=== PATIENT | male | born 1985 | race Caucasian/White ===

== ENCOUNTER → 2016-10-20 | Outpatient (RCR) | payer BC | END | disposition home or self-care (01) | LOC: M OUTALCOH 09-22 16:00 | PROVIDERS: ATTEND Psychiatry & Neurology Psychiatry | DX: F10.20 Alcohol dependence, uncomplicated (principal); F17.228 Nicotine dependence, chewing tobacco, with other nicotine-induced disorders ==

== ENCOUNTER 2016-11-29 04:57 | Inpatient (IN) | payer BC ==
[~2016-11-29] VITALS: Ht 185.4 cm; Wt 78.2 kg
[2016-11-29] MEDS ORDERED: anxiety medication (05:06)
[2016-11-29 06:50] LABS: MEAN CORPUSCULAR HEMOGLOBIN 30.6 pg (27.0-33.0); MEAN CORPUSCULAR HGB CONC 34.6 g/dl (32.0-36.5); MEAN CORPUSCULAR VOLUME 88.6 fl (80.0-96.0); RED CELL DISTRIBUTION WIDTH 12.6 % (11.5-14.5); WHITE BLOOD COUNT 6.4 K/mm3 (4.0-10.0)
[2016-11-29 07:08] LABS: METHADONE URINE NEGATIVE (NEGATIVE)
[2016-11-29 07:16] LABS: ALBUMIN 4.2 GM/DL (3.2-5.2); ALBUMIN/GLOBULIN RATIO 1.24 (1.00-1.93); ALKALINE PHOSPHATASE 53 U/L (45-117); ALT/SGPT 32 U/L (12-78); ANION GAP 10 MEQ/L (8-16); AST/SGOT 23 U/L (15-37); BILIRUBIN,DIRECT < 0.1 MG/DL (0.0-0.2); BILIRUBIN,TOTAL 0.1 MG/DL (0.2-1.0); BLOOD UREA NITROGEN 16 MG/DL (7-18); CALCIUM LEVEL 8.8 MG/DL (8.5-10.1); CARBON DIOXIDE LEVEL 29 MEQ/L (21-32); CHLORIDE LEVEL 107 MEQ/L (98-107); CREATININE FOR GFR 1.16 MG/DL (0.70-1.30); GLOMERULAR FILTRATION RATE > 60.0 (>60); GLUCOSE, FASTING 89 MG/DL (70-105); SODIUM LEVEL 146 MEQ/L (136-145); TOTAL PROTEIN 7.6 GM/DL (6.4-8.2)
[2016-11-30] MEDS ORDERED: HYDR-4274 PO (12:24)
[2016-11-30 14:48] VITALS: BP 134/86
[2016-11-30 14:50] VITALS: BP 134/86
[2016-11-30] MEDS ORDERED: MOM 30ML SUSPENSION UDC PO PRN (16:30)
[2016-11-30] MEDS ORDERED: ACETAMINOPHEN TAB 650MG DOSE (2X325MG) PO PRN (16:30)
[2016-11-30] MEDS ORDERED: diphenhydrAMINE 25 MG CAP PO PRN (16:30)
[2016-11-30] MEDS ORDERED: LORazepam 2 MG TAB PO PRN (16:30)
[2016-11-30] MEDS ORDERED: THIAMINE 100 MG TAB PO ONE (16:45)
[2016-11-30] MEDS: traZODone 50 MG TAB PO PRN (21:18)
[2016-12-01 06:33] VITALS: BP 121/70
[2016-12-01 07:53] VITALS: BP 132/82
[2016-12-01] MEDS: MULTIVITAMINS/MINERALS THERAP 1 TAB PO SCH (08:50)
[2016-12-01] MEDS: THIAMINE 100 MG TAB PO SCH ×2 (08:50→21:39)
[2016-12-01] MEDS: FOLIC ACID 1 MG TAB PO SCH (08:50)
--- NOTE | 2016-12-01 10:40 | HPEPDOC ---
Medical History and Physical Date of Admission Nov 30, 2016 at 13:58 History and Physical PCP: None ATTENDING: Dr. Reilly Graf HPI: 31yoM admitted to [facility] for other specified depressive disorder, being medically examined today. No acute medical complaints today. Patient is denying any neck pain with movement, he states he does have some mild neck ache. No radiation of pain down his arms. No weakness, numbness, or tingling in upper extremities. He denies any headaches. There is a slight abrasion to the anterior neck area. Denies any fevers, chills, weakness, fatigue, SUBRAMANIAN, CP, SOB, cough, palpitations, abdominal pain, N/V/D or changes in bowel or bladder habits. PMHx: Anxiety Depression Alcohol use H/O SI/OD PSHX: Denies SOCHX: Resides in: [place], [place] Marital Status: Single Kids: 1 Employment: [employer] Tobacco use: Denies ETOH: Daily 6 or more drinks Illicit Drugs: Denies IV Drug Use: Denies Tattoos done unprofessionally: Denies FAMHX: Mother: Alive, history of CVA Father: Alive, diabetes, CAD Siblings: One sister Alive, well Children: Alive, well Unexpected deaths due to medical reasons: None. ROS: As noted in HPI, otherwise 11pt ROS of systems reviewed and unremarkable. PE: GEN: 31yoM, appears stated age. Well-nourished, well developed. No acute distress. Alert and oriented x 3. Pleasant, interactive. HEENT: Normocephalic, atraumatic. Pupils are equal, round, and reactive to light. Extraocular movements are intact. No nystagmus appreciated. Sclera are nonicteric. Conjunctiva without injection. Nose midline. Nasal turbinates without bogginess. EACs both patent BL. TMs both visualized and carrera with good cone of light, no bulging or erythema. No facial asymmetry. Moist mucous membranes. Dentition fair. Pharynx pink and moist, no cobblestoning. Neck supple , trachea midline. No lymphadenopathy or thyromegaly appreciated. CHEST: Regular rate and rhythm, +S1, +S2 LUNGS: Clear to auscultation bilaterally. No wheezes, rales, or rhonchi. Breathing appears symmetric and easy. Patient is speaking in full sentences. No accessory muscle use. ABD: Round, soft, non-tender, non-distended. +Bowel sounds throughout. No rebound or guarding. No costovertebral angle tenderness. EXT: Pulses 2+ bilaterally dorsalis pedis and radial. No lower extremity edema appreciated. SKIN: [place], dry, warm. Capillary refill <2sec. No rashes. There is superficial erythema noted anterior neck. NEURO: Alert and oriented x 3. Cranial nerves III-XII are intact. No focal deficits appreciated. There is no tenderness with palpation over the cervical spine or paraspinal muscles. EKG: pending. A&P: 31yoM admitted to [facility] for other specified depressive disorder 1. Psych. Plan per Psychiatry. Obtain baseline EKG to assure the safety of psychiatric medications as they can prolong the QT interval. 2. Hypernatremia. Oral intake has improved. Recheck BMP 3. Anterior neck abrasion/H/O Neck trauma. Appears to be healing. Appears to be superficial. Check CT Cervical spine. 4. Follow up. No Primary Care Provider. Will attempt to establish PCP on discharge. 5. Substance use. Withdrawal per psychiatry. Continue with MVI, Thiamine, and Folic Acid supplementation. Vital Signs Vital Signs Label Value Date Time Patient Temperature 95.7 degrees F 12/01/16 0633 Temperature Source Tympanic 12/01/16 0633 Pulse 63 12/01/16 0633 Respiratory Rate 18 bpm 12/01/16 0633 Blood Pressure Assessment 121/70 (87) 12/01/16 0633 Blood Pressure Assessment 132/82 12/01/16 0753 Laboratory Data Labs 24H Item Value Date Time White Blood Count 6.4 K/mm3 11/29/16 0508 Red Blood Count 5.69 M/mm3 11/29/16 0508 Hemoglobin 17.4 g/dl 11/29/16 0508 Hematocrit 50.4 % 11/29/16 0508 Mean Corpuscular Volume 88.6 fl 11/29/16 0508 Mean Corpuscular Hemoglobin 30.6 pg 11/29/16 0508 Mean Corpuscular Hemoglobin Concent 34.6 g/dl 11/29/16 0508 Red Cell Distribution Width 12.6 % 11/29/16 0508 Platelet Count 324 k/mm3 11/29/16 0508 Sodium Level 146 MEQ/L H 11/29/16 0508 Potassium Level 4.0 MEQ/L 11/29/16 0508 Chloride Level 107 MEQ/L 11/29/16 0508 Carbon Dioxide Level 29 MEQ/L 11/29/16 0508 Anion Gap 10 MEQ/L 11/29/16 0508 Blood Urea Nitrogen 16 MG/DL 11/29/16 0508 Creatinine 1.16 MG/DL 11/29/16 0508 Glomerular Filtration Rate > 60.0 11/29/16 0508 Fasting Glucose 89 MG/DL 11/29/16 0508 Calcium Level 8.8 MG/DL 11/29/16 0508 Total Bilirubin 0.1 MG/DL L 11/29/16 0508 Direct Bilirubin < 0.1 MG/DL 11/29/16 0508 Aspartate Amino Transf (AST/SGOT) 23 U/L 11/29/16 0508 Alanine Aminotransferase (ALT/SGPT) 32 U/L 11/29/16 0508 Alkaline Phosphatase 53 U/L 11/29/16 0508 Total Protein 7.6 GM/DL 11/29/16 0508 Albumin 4.2 GM/DL 11/29/16 0508 Albumin/Globulin Ratio 1.24 11/29/16 0508 Thyroid Stimulating Hormone (TSH) 1.180 uIU/ML 11/29/16 0508 Item Value Date Time Salicylates Level < 1.7 MG/DL L 11/29/16 0508 Urine Opiates Screen NEGATIVE 11/29/16 0508 Urine Methadone Screen NEGATIVE 11/29/16 0508 Acetaminophen Level < 2.0 UG/ML L 11/29/16 0508 Urine Barbiturates Screen NEGATIVE 11/29/16 0508 Urine Phencyclidine Screen NEGATIVE 11/29/16 0508 Urine Amphetamines Screen NEGATIVE 11/29/16 0508 Urine Benzodiazepines Screen NEGATIVE 11/29/16 0508 Urine Cocaine Metabolite Screen NEGATIVE 11/29/16 0508 Urine Cannabinoids Screen NEGATIVE 11/29/16 0508 Ethyl Alcohol Level 0.229 % H 11/29/16 0508 Home Medications Scheduled PRN Hydroxyzine HCl (Hydroxyzine HCl) 50 Mg Tab 50 MG PO PRN ANXIETY Allergies Coded Allergies: No Known Allergies (Unverified , 11/29/16) Leana Solomon Dec 01, 2016 10:40
[2016-12-01 11:36] LABS: ANION GAP 9 MEQ/L (8-16); BLOOD UREA NITROGEN 18 MG/DL (7-18); CALCIUM LEVEL 9.4 MG/DL (8.5-10.1); CARBON DIOXIDE LEVEL 32 MEQ/L (21-32); CHLORIDE LEVEL 99 MEQ/L (98-107); CREATININE FOR GFR 1.05 MG/DL (0.70-1.30); GLOMERULAR FILTRATION RATE > 60.0 (>60); GLUCOSE, FASTING 87 MG/DL (70-105); POTASSIUM SERUM 3.8 MEQ/L (3.5-5.1); SODIUM LEVEL 140 MEQ/L (136-145)
[2016-12-01] MEDS: buPROPion **XL** TABLET 150MG (WELLBUTRIN XL) PO SCH (11:44)
--- NOTE | 2016-12-01 13:09 | REP ---
CT cervical spine without contrast: 12/01/2016. Comparison x-ray 01/16/2008. Clinical history: Neck pain, history trauma. As a new finding compared to the 01/2008 study. At that time. There is only minimal disc space narrowing with no osteophyte formation of the disc space heights and all vertebral body heights are intact. The loss of lordosis is noted. The dens is intact. The C1-2 relationships are normal on all projections. That portion of the mastoids and occipital bone included were unremarkable. Ring of C1 intact. The spinous processes, lamina, transverse processes, facets, pedicles and transverse foramina symmetric and normal. . No prevertebral swelling. The visualized airway from the nasopharynx through the subglottic trachea is unremarkable. The low upper most thoracic vertebral levels and first two ribs included in part were all unremarkable. Impression: 1. Cervical spondylosis at C5-6 with sclerosis of end-plates anterior and small posterior osteophytes with disc space narrowing with to be of the disc space heights and all vertebral body heights are intact. 2. Dens intact and its relationship to C1 normal on all views 3. Straightening of the spine may reflect spasm. There is no malalignment, avulsion or other acute finding. Signed by Freddy Shoemaker MD 12/01/2016 01:00 P
--- NOTE | 2016-12-01 16:28 | HPEPDOC ---
[facility] History & Physical History and Physical DATE OF ADMISSION: Nov 30, 2016 at 13:58 LEGAL STATUS AT ADMISSION: 9.39 CHIEF COMPLAINT: Suicide attempt by hanging. HISTORY OF THE PRESENT ILLNESS: Patient is a 31-year-old man, who presented to the ED after calling 911. He stated that he wasn't intoxicated state and attempted to hang himself. He states he had the noose around his neck and subsequently after feeling the noose tightened around his neck for the attempt by grabbing onto a ledge. He describes for the last month he had been feeling very depressed and subsequently began to entertain suicidal thoughts. He states that he is in a cantankerous relationship with his child's mother. He describes that she has been complicating his ability to visit his son and that this caused him a fair amount stress. He describes feeling more angry and distraught and has tried to soothe himself with increased drinking. He describes that he will usually drinks 6 beers a night but has found more frequently that he has been drinking up to 24 beers an evening. 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 He further went describes that he is developed panic-like symptoms associated with chest tightness, nausea, shortness of breath and fear of another attack and a peer unprovoked 10, random. He additionally notes jaw clenching has assigned that he is going to go into such a panic-like state. He describes that he had been inpatient in May and had been tried on Celexa and risperidone. He describes that the medicine was ineffective and made him feel "out of it". He describes that he additionally tried to go to the outpatient psychotherapy but found that he was switched around to multiple therapists to the point were he was confused as to when he had an appointment. He describes that he was lost to follow-up at this time. PAST PSYCHIATRIC HISTORY: Prior Psychiatric Disorder: History of depression with first interaction with mental health in May 2015. Outpatient Treatment: No current treatment has been previously connected to [facility] outpatient behavioral Suicidal/Self injurious: One prior attempt in May. Psychotropic Medication History: Has been only tried on Celexa and risperidone in the past. Is on no psychotropic medications at this time ALLERGIES: Please see below. HOME MEDICATIONS: Per record as follows: None PAST MEDICAL/SURGICAL HISTORY: None FAMILY PSYCHIATRIC HISTORY: Describes that his mother is on antidepressants after having a stroke last year. Is unaware of any other mental health history in his family. SOCIAL HISTORY: The patient grew up in the [facility] area just outside of [place]. He described that his mother and father were friendly and amenable people. He denies experiencing any physical, sexual or emotional abuse when he was young. He describes has one older sister. He states that he struggled in high school and felt very disinterested in his schoolwork towards the end. He did ultimately graduate but stated he had many older friends whom he wanted to "hang out with" which caused his grades to slip. 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 SUBSTANCE ABUSE HISTORY: The patient states that he began drinking when he was 12 years old. He describes that externally thereafter began drinking regularly. He describes that he drinks anywhere from 6 beers a day up to 24 beers a day when he is "mad". She is states he is experimented with other drugs such as heroin and cocaine but has not used them recently. He describes that he uses chewing tobacco but previously used cigarettes since he was a young teenager. LEGAL HISTORY: 3 DUIs. VITAL SIGNS: Date Time Temp Pulse Resp B/P Pulse Ox O2 Delivery O2 Flow Rate FiO2 11/29/16 05:03 96.3 114 20 142/97 96 Room Air LABORATORY DATA: Please see below. REVIEW OF SYSTEMS: Depressive: The patient admits to the above-mentioned depressive symptoms with neurovegetative components. Anxiety: The patient admits to having episodes of punctuated anxiety associated with jaw clenching, SOB, chest tightness and feelings of doom. He experiences fear of recurrent attacks with no provoking factor to come on suddenly. He additionally states he has excessive worry with insomnia. Traumatic: The patient denies any traumatic experiences. [place]: The patient denies experiencing any episodes of elevated mood associated with grandiosity, increased talkativeness or impulsivity lasting longer than 5 days. Psychotic: The patient denies experiencing any paranoid or bizarre thoughts. He additionally denies any auditory or visual hallucinations in the past or present. MENTAL STATUS EXAMINATION: Patient is a 31-year old male, who is pleasant and cooperative. He appears mildly disheveled he is sitting in his bed wrapped in covers Speech: Is normal in rate, volume, and articulation, and is coherent and spontaneous Language skills are intact. Thought processes: Clear. Thought content: Logical and linear. Abstract reasoning, and computation: Intact. Description of associations: Intact. Description of abnormal or psychotic thoughts: Denies any suicidal or homicidal thoughts at this time. Denies any auditory or visual hallucinations. Does not appear to be responding to internal stimuli. Judgment: Limited. Insight: Fair. Orientation to time place and person. Recent and remote memory: Grossly intact is able to remember the events prior to his admission and autobiographical information. He is additionally able to remember information from the day prior. Attention span and concentration: Good. Language: Normal. Fund of knowledge: Good. Mood: "Okay". Affect: Dysthymic and constricted. DIAGNOSES: 1. Unspecified depressive disorder. 2. Alcohol use disorder, severe, in withdrawal 3. Tobacco uses her, severe, in controlled setting. ASSESSMENT: A 31-year-old man with a history of severe alcoholism presenting with oppressive symptoms and irritable mood. His symptoms appear to match her underlying personality disorder criteria and do not meet criteria for major depressive disorder at this time to the concurrent substance abuse. He denies any experience of traumatic events however his early family relations appear to be somewhat concealed and could be relatively high yielding for the patient in terms of understanding his behavior. PROBLEM LIST: 1. Suicidal thoughts 2. Depression. 3. Anxiety. INITIAL TREATMENT PLAN: 1. Patient was admitted on a 939 legal status. 2. Complete history was obtained. 3. With patients permission, family will be contacted and database will be expanded. 4. Patients medication regimen will be reviewed and changed accordingly. 5. Patient will be provided with protected environment. 6. Patient will be treated with individual, group, and milieu therapies. 7. Patient will receive supportive psych-education. 8. Discharge planning will commence immediately. 9. Outpatient follow-up treatment will be strongly recommended. 10. The initial treatment plan will focus initially on: * Depression. * Risk for suicide. * Substance abuse. 11. Start Wellbutrin 150 mg extended release formula daily 12. Start CIWA protocol with thiamine and folate supplementation for alcoholism 13. Offer nicotine replacement therapy ESTIMATED LENGTH OF STAY: 3-5 DAYS. TIME SPENT COUNSELING AND COORDINATING INITIAL CARE: 50 minutes. Laboratory Data 24H Labs Laboratory Tests 2 12/01/16 10:55: Anion Gap 9, Blood Urea Nitrogen 18, Creatinine 1.05, Sodium Level 140, Potassium Level 3.8, Chloride Level 99, Carbon Dioxide Level 32, Calcium Level 9.4, Glomerular Filtration Rate > 60.0 CBC/BMP Laboratory Tests 12/01/16 10:55 Calcium Level 9.4 Medications Scheduled PRN Hydroxyzine HCl (Hydroxyzine HCl) 50 Mg Tab 50 MG PO PRN ANXIETY (Reported) Allergies Coded Allergies: No Known Allergies (Unverified , 11/29/16) GME ATTESTATION My preceptor for this patient encounter was physically present in the building during the encounter and was fully available. As needed, all aspects of the patient interview, examination, medical decision making process, and medical care plan development were reviewed and approved by the preceptor. Preceptor is aware and concurs with the plan as stated in the body of this note and will attest to such by his/her cosignature. SARAH FERNANDEZ DO Dec 01, 2016 11:57
[2016-12-01 17:16] VITALS: BP 112/61
[2016-12-01 18:00] VITALS: BP 112/61
--- NOTE | 2016-12-02 00:41 | ECGEPIP ---
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 THERE IS NO MANIFESTATION OF RIGHT BUNDLE BLOCK Electronically Signed On 12-02-2016 0:41:01 EDT by Dru Tinsley
[2016-12-02 06:00] VITALS: BP 114/67
[2016-12-02 08:30] VITALS: BP 127/84
[2016-12-02] MEDS: THIAMINE 100 MG TAB PO SCH ×2 (09:19→20:41)
[2016-12-02] MEDS: FOLIC ACID 1 MG TAB PO SCH (09:19)
[2016-12-02] MEDS: MULTIVITAMINS/MINERALS THERAP 1 TAB PO SCH (09:19)
[2016-12-02] MEDS: buPROPion **XL** TABLET 150MG (WELLBUTRIN XL) PO SCH (09:19)
[2016-12-02] MEDS ORDERED: LORazepam 2 MG TAB PO ONE (15:45)
[2016-12-02 18:00] VITALS: BP 127/71
[2016-12-02] MEDS: traZODone 50 MG TAB PO PRN (20:41)
--- NOTE | 2016-12-02 21:43 | IPNPDOC ---
[facility] Progress Note Progress Note DATE OF SERVICE: 12/02/16 HISTORY: The patient was met with today. He has been sleeping for the majority of the time since he arrived and hasn't attended groups. He hasn't been scoring on his CIWA protocol but has some signs of sweating and very fine tremor on exam today. The nursing staff hasn't noted any behavioral problems or other issues overnight. He elaborated some more of his depressed mood today, described that he has had no ill effects from the wellbutrin but hasn't noted any changes otherwise. VITAL SIGNS: See below. NEW TEST RESULTS: none CURRENT MEDICATIONS: See below. MENTAL STATUS EXAMINATION: Patient is a 31-year old male, who is pleasant, cooperative, disheveled laying in bed. Speech: Is normal in rate, volume, and articulation, and is coherent and spontaneous. Language skills are intact. Thought processes including: clear Thought content: linear Abstract reasoning, and computation: intact. Description of associations: intact Description of abnormal or psychotic thoughts: denies any SI, HI, AH or VH. Doesn't appear to be responding to internal stimuli Judgment: limited Insight: poor Orientation to time, place and person. Recent and remote memory: Immediate, short-term and long-term memory is intact. Attention span and concentration: good Language: Normal. Fund of knowledge:good Mood: "okay" Affect: dysthymic and constricted DIAGNOSES: 1. Unspecified depressive disorder -r/o substance induced 2. Unspecified anxiety disorder 3. Alcohol use disorder, severe, in controlled setting ASSESSMENT 31 year old man with long history of alcoholism presents with severe depression after relapsing. He has had little success with outpatient treatment and is not interested in rehab at this time. MANAGEMENT PLAN: 1. Wellbutrin 150mg XL daily 2. Considering naltrexone for cravings 3. WA continue with one dose of 2mg of ativan for acute coverage 4. Nicotine replacement therapy 5. Continue stay as patient is still very ill from his depression and alcohol withdrawal TIME SPENT: 15 minutes. Vital Signs Vital Signs Date Time Temp Pulse Resp B/P Pulse Ox O2 Delivery O2 Flow Rate FiO2 12/02/16 18:00 97.8 67 16 127/71 11/30/16 14:48 98 Room Air Current Medications Current Medications Acetaminophen (Tylenol Tab) 650 mg Q6HP PRN PO HEADACHE or DISCOMFORT; Start at 16:30; Stop 12/30/16 at 16:29 Bupropion HCl (Wellbutrin Xl) 150 mg DAILY PO Last administered on 12/02/16 09 :19; Start 12/01/16 at 09:00; Stop 12/31/16 at 08:59 Diphenhydramine HCl (Benadryl) 25 mg Q6HP PRN PO ANXIETY/AGITATION; Start 11/30 at 16:30; Stop 12/30/16 at 16:29 Folic Acid (Folic Acid) 1 mg DAILY PO Last administered on 12/02/16 09:19; Start 12/01/16 at 09:00; Stop 12/31/16 at 08:59 Home Med (Med Rec Complete!) ASDIRECTED XX ; Start 11/30/16 at 12:30; Stop at 12:31; Status DC Lorazepam (Ativan) 2 mg ASDIRECTED PRN PO SEE PROTOCOL; Start 11/30/16 at 16:30 ; Stop 12/07/16 at 16:29 Magnesium Hydroxide (Milk Of Magnesia) 30 ml DAILYPRN PRN PO CONSTIPATION; Start 11/30/16 at 16:30; Stop 12/30/16 at 16:29 Multivitamins (Theragram-M) 1 tab DAILY PO Last administered on 12/02/16 09:19 ; Start 12/01/16 at 09:00; Stop 12/31/16 at 08:59 Thiamine HCl (Thiamine HCl) 100 mg BID PO Last administered on 12/02/16 20:41 ; Start 12/01/16 at 09:00; Stop 12/03/16 at 09:01 Trazodone HCl (Desyrel) 50 mg QHSP PRN PO INSOMNIA Last administered on 20:41; Start 11/30/16 at 16:30; Stop 12/30/16 at 16:29 Allergies Coded Allergies: No Known Allergies (Unverified , 11/29/16) GME ATTESTATION My preceptor for this patient encounter was physically present in the building during the encounter and was fully available. As needed, all aspects of the patient interview, examination, medical decision making process, and medical care plan development were reviewed and approved by the preceptor. Preceptor is aware and concurs with the plan as stated in the body of this note and will attest to such by his/her cosignature. SARAH FERNANDEZ DO Dec 02, 2016 21:43
[2016-12-03 06:21] VITALS: BP 119/74
[2016-12-03] MEDS: buPROPion **XL** TABLET 150MG (WELLBUTRIN XL) PO SCH (08:54)
[2016-12-03] MEDS: THIAMINE 100 MG TAB PO SCH (08:55)
[2016-12-03] MEDS: MULTIVITAMINS/MINERALS THERAP 1 TAB PO SCH (08:55)
[2016-12-03] MEDS: FOLIC ACID 1 MG TAB PO SCH (08:55)
[2016-12-03 18:00] VITALS: BP 140/73
--- NOTE | 2016-12-03 19:01 | IPNPDOC ---
[facility] Progress Note Progress Note DATE OF SERVICE: 12/03/16 HISTORY: The patient is met with today he is been generally sleeping his bed for the most part. He has had to be scoring on [place]. He described that the Ativan last night didn't help him sleep and he only got "a few hours". He further went described that he was expressing relatively extreme anxiety and wanted some medicine to help with that. He alluded to only a dry mouth as his current symptom appeared to proceed the Wellbutrin. He has not been active in groups today but has been observed in the milieu at times. Nursing staff have not noticed any behavioral problems and he appears to be compliant with treatment. 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 He is not interested in inpatient rehabilitation. VITAL SIGNS: [place]. NEW TEST RESULTS: None. CURRENT MEDICATIONS: See below. MENTAL STATUS EXAMINATION: Patient is a 31-year old male, who is pleasant, cooperative with mild disheveled appearance,. Speech: Is spontaneous and fluid. Language skills are intact. Thought processes including: Linear and logical. Thought content: Future orientated. Abstract reasoning, and computation: Intact. Description of associations: Intact. Description of abnormal or psychotic thoughts: Denies any suicidal, homicidal ideation. Denies any auditory or visual hallucinations. Does not appear to be responding to internal stimuli.. Judgment: Poor. Insight: Limited. Orientation to alert and orientated 3. Recent and remote memory: Grossly intact. Attention span and concentration: Good. Language: Normal. Fund of knowledge: Good. Mood: "Anxious". Affect: Dysphoric and constricted. DIAGNOSES: 1. Unspecified depressive disorder. 2. Unspecified anxiety disorder. 3. Alcohol Use disorder, severe, in withdrawal. ASSESSMENT: 31-year-old male with a long history of alcoholism presents after attempting to hang himself. His mood dysregulation could be due to his consistent intoxication. He will likely benefit from neurocognitive testing when he is more clearly less anxious. MANAGEMENT PLAN: 1. Continue Wellbutrin 150 mg daily extended release formula. 2. Start when necessary clonidine once daily 0.05 mg for anxiety 3. Considering naltrexone next week as the patient improves for alcohol cravings. 4. Continue inpatient stay as the patient currently is suffering from severe anxiety and alcohol withdrawal and would likely pose a danger to himself due to his grave disability TIME SPENT: 15 minutes. Vital Signs Vital Signs Date Time Temp Pulse Resp B/P Pulse Ox O2 Delivery O2 Flow Rate FiO2 12/03/16 18:00 99.1 73 18 140/73 11/30/16 14:48 98 Room Air Current Medications Current Medications Acetaminophen (Tylenol Tab) 650 mg Q6HP PRN PO HEADACHE or DISCOMFORT; Start at 16:30; Stop 12/30/16 at 16:29 Bupropion HCl (Wellbutrin Xl) 150 mg DAILY PO Last administered on 12/03/16 08 :54; Start 12/01/16 at 09:00; Stop 12/31/16 at 08:59 Diphenhydramine HCl (Benadryl) 25 mg Q6HP PRN PO ANXIETY/AGITATION; Start 11/30 at 16:30; Stop 12/30/16 at 16:29 Folic Acid (Folic Acid) 1 mg DAILY PO Last administered on 12/03/16 08:55; Start 12/01/16 at 09:00; Stop 12/31/16 at 08:59 Home Med (Med Rec Complete!) ASDIRECTED XX ; Start 11/30/16 at 12:30; Stop at 12:31; Status DC Lorazepam (Ativan) 2 mg ASDIRECTED PRN PO SEE PROTOCOL; Start 11/30/16 at 16:30 ; Stop 12/07/16 at 16:29 Magnesium Hydroxide (Milk Of Magnesia) 30 ml DAILYPRN PRN PO CONSTIPATION; Start 11/30/16 at 16:30; Stop 12/30/16 at 16:29 Multivitamins (Theragram-M) 1 tab DAILY PO Last administered on 12/03/16 08:55 ; Start 12/01/16 at 09:00; Stop 12/31/16 at 08:59 Thiamine HCl (Thiamine HCl) 100 mg BID PO Last administered on 12/03/16 08:55 ; Start 12/01/16 at 09:00; Stop 12/03/16 at 09:01; Status DC Trazodone HCl (Desyrel) 50 mg QHSP PRN PO INSOMNIA Last administered on 20:41; Start 11/30/16 at 16:30; Stop 12/30/16 at 16:29 Allergies Coded Allergies: No Known Allergies (Unverified , 11/29/16) GME ATTESTATION My preceptor for this patient encounter was physically present in the building during the encounter and was fully available. As needed, all aspects of the patient interview, examination, medical decision making process, and medical care plan development were reviewed and approved by the preceptor. Preceptor is aware and concurs with the plan as stated in the body of this note and will attest to such by his/her cosignature. SARAH FERNANDEZ DO Dec 03, 2016 19:01
[2016-12-03] MEDS: traZODone 50 MG TAB PO PRN (22:08)
[2016-12-04 06:30] VITALS: BP 113/63
[2016-12-04] MEDS: FOLIC ACID 1 MG TAB PO SCH (08:17)
[2016-12-04] MEDS: buPROPion **XL** TABLET 150MG (WELLBUTRIN XL) PO SCH (08:17)
[2016-12-04] MEDS: MULTIVITAMINS/MINERALS THERAP 1 TAB PO SCH (08:17)
[2016-12-04 10:04] VITALS: BP 124/83
--- NOTE | 2016-12-04 17:20 | IPNPDOC ---
[facility] Progress Note Progress Note DATE OF SERVICE: 12/04/16 HISTORY: The patient was met with individually today. He described that he was feeling somewhat better and that the Ativan was helping to reduce his anxiety and feelings of withdrawal. Reportedly he was scoring CIWA score of 14. However , his vital signs appeared generally stable. He states he's been tolerating the Wellbutrin relatively well and that the dry mouth appears to be resolving. He was interested in starting naltrexone for alcohol cravings as this was a difficult problem for him even on the rogers. He has been noted to be more engaging and social. He has attended some groups today. Nursing has noted him to be friendly and amenable on approach and is been nondisruptive on the rogers. VITAL SIGNS: See below. NEW TEST RESULTS: None. CURRENT MEDICATIONS: See below. MENTAL STATUS EXAMINATION: Patient is a 31-year old male, who is pleasant, cooperative with good hygiene,. Speech: Is spontaneous and fluid. Language skills are intact. Thought processes including: Linear and logical. Thought content: No perseveration. Abstract reasoning, and computation: Intact. Description of associations: Intact. Description of abnormal or psychotic thoughts: Denies any suicidal or homicidal ideation. Denies any auditory or visual hallucinations. Does not appear to be her spine to internal stimuli. Does not endorse any bizarre paranoid ideation. Judgment: Fair. Insight: Fair. Orientation alert and orientated 3. Recent and remote memory: Grossly intact. Attention span and concentration: Good. Language: Normal. Fund of knowledge: Adequate. Mood: "Okay". Affect: somewhat dysthymic and constricted. DIAGNOSES: 1. Unspecified depressive disorder. 2. Unspecified anxiety disorder. 3. Alcohol use disorder, severe, and withdrawal. ASSESSMENT: 31-year-old male with a long history of alcoholism who presents with acute anxiety and depression after reportedly attempting himself. He has been stabilizing as his alcohol withdrawal appears to be improving. He is outpatient disposition is likely going to be difficult as he has had difficulty ceasing drinking as an outpatient. MANAGEMENT PLAN: 1. Continue Wellbutrin 150 mg daily extended release formula 2. Start naltrexone 25 mg daily for cravings 3. Continue clonidine 0.05 mg 3 times as needed for anxiety and dysphoria with parameters. 4. Continue when necessary trazodone 5. Continue inpatient stay as the patient will require more time to get over his alcohol withdrawal and receive more treatment for his depression and anxiety. TIME SPENT: 15 minutes. Vital Signs Vital Signs Date Time Temp Pulse Resp B/P Pulse Ox O2 Delivery O2 Flow Rate FiO2 12/04/16 10:04 76 124/83 12/04/16 06:30 98.5 20 11/30/16 14:48 98 Room Air Current Medications Current Medications Acetaminophen (Tylenol Tab) 650 mg Q6HP PRN PO HEADACHE or DISCOMFORT; Start at 16:30; Stop 12/30/16 at 16:29 Bupropion HCl (Wellbutrin Xl) 150 mg DAILY PO Last administered on 12/04/16 08 :17; Start 12/01/16 at 09:00; Stop 12/31/16 at 08:59 Clonidine HCl (Catapres) 0.05 mg TIDP PRN PO anxiety; Start 12/04/16 at 10:45; Stop 01/03/17 at 10:44 Diphenhydramine HCl (Benadryl) 25 mg Q6HP PRN PO ANXIETY/AGITATION; Start 11/30 at 16:30; Stop 12/30/16 at 16:29 Folic Acid (Folic Acid) 1 mg DAILY PO Last administered on 12/04/16 08:17; Start 12/01/16 at 09:00; Stop 12/31/16 at 08:59 Home Med (Med Rec Complete!) ASDIRECTED XX ; Start 11/30/16 at 12:30; Stop at 12:31; Status DC Lorazepam (Ativan) 2 mg ASDIRECTED PRN PO SEE PROTOCOL Last administered on 10:43; Start 11/30/16 at 16:30; Stop 12/07/16 at 16:29 Magnesium Hydroxide (Milk Of Magnesia) 30 ml DAILYPRN PRN PO CONSTIPATION; Start 11/30/16 at 16:30; Stop 12/30/16 at 16:29 Multivitamins (Theragram-M) 1 tab DAILY PO Last administered on 12/04/16 08:17 ; Start 12/01/16 at 09:00; Stop 12/31/16 at 08:59 Naltrexone HCl (Revia) 25 mg DAILY PO ; Start 12/05/16 at 09:00; Stop 4/17/17 at 08:59 Thiamine HCl (Thiamine HCl) 100 mg BID PO Last administered on 12/03/16 08:55 ; Start 12/01/16 at 09:00; Stop 12/03/16 at 09:01; Status DC Trazodone HCl (Desyrel) 50 mg QHSP PRN PO INSOMNIA Last administered on 22:08; Start 11/30/16 at 16:30; Stop 12/30/16 at 16:29 Allergies Coded Allergies: No Known Allergies (Unverified , 11/29/16) GME ATTESTATION My preceptor for this patient encounter was physically present in the building during the encounter and was fully available. As needed, all aspects of the patient interview, examination, medical decision making process, and medical care plan development were reviewed and approved by the preceptor. Preceptor is aware and concurs with the plan as stated in the body of this note and will attest to such by his/her cosignature. SARAH FERNANDEZ DO Dec 04, 2016 17:20 SARAH FERNANDEZ DO Dec 04, 2016 17:20
[2016-12-04 18:00] VITALS: BP 117/69
[2016-12-04 18:33] VITALS: BP 117/69
[2016-12-05 08:00] VITALS: BP 125/72
[2016-12-05] MEDS: NALTREXONE 50 MG TAB PO SCH (08:30)
[2016-12-05] MEDS: buPROPion **XL** TABLET 150MG (WELLBUTRIN XL) PO SCH (08:30)
[2016-12-05] MEDS: FOLIC ACID 1 MG TAB PO SCH (08:30)
[2016-12-05] MEDS: MULTIVITAMINS/MINERALS THERAP 1 TAB PO SCH (08:30)
[2016-12-05] MEDS: cloNIDine 0.05MG PER 1/2 TABLET PO PRN ×2 (11:12→17:26)
[2016-12-05 18:00] VITALS: BP 122/81
[2016-12-06 06:36] VITALS: BP 131/93
[2016-12-06 08:00] VITALS: BP 126/88
[2016-12-06] MEDS: NALTREXONE 50 MG TAB PO SCH (08:42)
[2016-12-06] MEDS: buPROPion **XL** TABLET 150MG (WELLBUTRIN XL) PO SCH (08:42)
[2016-12-06] MEDS: MULTIVITAMINS/MINERALS THERAP 1 TAB PO SCH (08:42)
[2016-12-06] MEDS: FOLIC ACID 1 MG TAB PO SCH (08:42)
[2016-12-06] MEDS: cloNIDine 0.05MG PER 1/2 TABLET PO PRN (08:42)
[2016-12-06 16:00] VITALS: BP 121/78
[2016-12-06 18:00] VITALS: BP 121/78
[2016-12-06] MEDS: traZODone 50 MG TAB PO PRN (20:00)
[2016-12-07 06:27] VITALS: BP 116/55
[2016-12-07 09:01] VITALS: BP 134/68
[2016-12-07] MEDS: NALTREXONE 50 MG TAB PO SCH (09:05)
[2016-12-07] MEDS: MULTIVITAMINS/MINERALS THERAP 1 TAB PO SCH (09:06)
[2016-12-07] MEDS: buPROPion **XL** TABLET 150MG (WELLBUTRIN XL) PO SCH (09:06)
[2016-12-07] MEDS: cloNIDine 0.05MG PER 1/2 TABLET PO PRN (09:06)
[2016-12-07] MEDS: FOLIC ACID 1 MG TAB PO SCH (09:06)
--- NOTE | 2016-12-07 16:02 | IPNPDOC ---
[facility] Progress Note Progress Note DATE OF SERVICE: 12/07/16 HISTORY: Met with the patient today in his room. The patient described that he was unhappy with the Wellbutrin and felt so the dry mouth side effect was unbearable. He described that the naltrexone had been unhelpful for his cravings. He was interested in being restarted on Celexa. He described the past he had had roughly 2 weeks' time with some benefit but it promptly had loss of positive effects after he restarted using alcohol. He described that he wanted to leave the [facility]gers soon as he was finding the milieu to be particularly tumultuous and problematic. He further described that he wished to find some answers for his anger and irritability. He wondered if there is medicines that could be given for this, however, the patient was told that psychotherapy both group and individual would be best. He has per nursing not been attending groups in any regular fashion. He is advised that group therapy would be ideal for treatment. VITAL SIGNS: See below. NEW TEST RESULTS: None. CURRENT MEDICATIONS: See below. MENTAL STATUS EXAMINATION: Patient is a 31-year old male, who is pleasant, cooperative and well kempt laying in a bed,. Speech: Is spontaneous and fluid. Language skills are intact. Thought processes including: Logical and linear. Thought content: Perseverates on medication. Abstract reasoning, and computation : Intact. Description of associations: Intact. Description of abnormal or psychotic thoughts: Denies any suicidal or homicidal ideation. Denies any auditory or visual hallucinations. Does not appear to be responding to internal stimuli. Does not endorse any bizarre or or paranoid ideation overtly. Judgment: Fair. Insight: Fair. Orientation to alert and orientated 3 . Recent and remote memory: Grossly intact. Attention span and concentration: Good. Language: Normal. Fund of knowledge: Adequate. Mood: "Kind a bad". Affect: Somewhat dysthymic and constricted. DIAGNOSES: 1. Unspecified depressive disorder. 2. Unspecified anxiety disorder. 3. Alcohol use disorder, severe, in controlled setting. ASSESSMENT: 31-year-old man with a long history of alcoholism presents after an episode attempted to hang himself. He appears her suffered anxiety and depression that could be secondary to his long-term alcohol use. He additionally states that he struggles from with anger and irritability to proceed his alcoholism. MANAGEMENT PLAN: 1. Discontinue Wellbutrin 150 mg daily 2. Start Celexa 10 mg daily 3. Discontinue naltrexone 25 mg daily 4. Continue ciwa protocol 5. Continue when necessary clonidine and hydroxyzine as well as trazodone for insomnia and anxiety respectively 6. Continue inpatient stay as patient will need to have further time for medication adjustments and to treat his overwhelming anxiety and depression. At this time still remains to will to be sent home safely. TIME SPENT: 20 minutes. Vital Signs Vital Signs Date Time Temp Pulse Resp B/P Pulse Ox O2 Delivery O2 Flow Rate FiO2 12/07/16 11:56 Room Air 12/07/16 09:06 134/68 12/07/16 09:01 70 18 12/07/16 06:27 98.5 Current Medications Current Medications Acetaminophen (Tylenol Tab) 650 mg Q6HP PRN PO HEADACHE or DISCOMFORT; Start at 16:30; Stop 12/30/16 at 16:29 Bupropion HCl (Wellbutrin Xl) 150 mg DAILY PO Last administered on 12/07/16 09 :06; Start 12/01/16 at 09:00; Stop 12/31/16 at 08:59 Clonidine HCl (Catapres) 0.05 mg TIDP PRN PO anxiety Last administered on 09:06; Start 12/04/16 at 10:45; Stop 01/03/17 at 10:44 Diphenhydramine HCl (Benadryl) 25 mg Q6HP PRN PO ANXIETY/AGITATION Last administered on 12/05/16 08:30; Start 11/30/16 at 16:30; Stop 12/30/16 at 16:29 Folic Acid (Folic Acid) 1 mg DAILY PO Last administered on 12/07/16 09:06; Start 12/01/16 at 09:00; Stop 12/31/16 at 08:59 Home Med (Med Rec Complete!) ASDIRECTED XX ; Start 11/30/16 at 12:30; Stop at 12:31; Status DC Lorazepam (Ativan) 2 mg ASDIRECTED PRN PO SEE PROTOCOL Last administered on 10:43; Start 11/30/16 at 16:30; Stop 12/13/16 at 16:29 Magnesium Hydroxide (Milk Of Magnesia) 30 ml DAILYPRN PRN PO CONSTIPATION; Start 11/30/16 at 16:30; Stop 12/30/16 at 16:29 Multivitamins (Theragram-M) 1 tab DAILY PO Last administered on 12/07/16 09:06 ; Start 12/01/16 at 09:00; Stop 12/31/16 at 08:59 Naltrexone HCl (Revia) 25 mg DAILY PO Last administered on 12/07/16 09:05; Start 12/05/16 at 09:00; Stop 01/04/17 at 08:59 Thiamine HCl (Thiamine HCl) 100 mg BID PO Last administered on 12/03/16 08:55 ; Start 12/01/16 at 09:00; Stop 12/03/16 at 09:01; Status DC Trazodone HCl (Desyrel) 50 mg QHSP PRN PO INSOMNIA Last administered on 20:00; Start 11/30/16 at 16:30; Stop 12/30/16 at 16:29 Allergies Coded Allergies: No Known Allergies (Unverified , 11/29/16) GME ATTESTATION My preceptor for this patient encounter was physically present in the building during the encounter and was fully available. As needed, all aspects of the patient interview, examination, medical decision making process, and medical care plan development were reviewed and approved by the preceptor. Preceptor is aware and concurs with the plan as stated in the body of this note and will attest to such by his/her cosignature. SARAH FERNANDEZ DO Dec 07, 2016 16:02
[2016-12-07 18:00] VITALS: BP 101/58
[2016-12-07] MEDS: traZODone 50 MG TAB PO PRN (23:07)
[2016-12-08 06:27] VITALS: BP 118/55
[2016-12-08] MEDS ORDERED: CitaloPRAM (CeleXA) 10 MG TABLET PO SCH (09:00)
[2016-12-08] MEDS: MULTIVITAMINS/MINERALS THERAP 1 TAB PO SCH (09:04)
[2016-12-08] MEDS: FOLIC ACID 1 MG TAB PO SCH (09:04)
[2016-12-08 11:33] VITALS: BP 111/59
[2016-12-08] MEDS ORDERED: PROPRANOLOL 10 MG TAB PO ONE (15:00)
[2016-12-08 18:00] VITALS: BP 128/68
--- NOTE | 2016-12-08 18:04 | IPNPDOC ---
[facility] Progress Note Progress Note DATE OF SERVICE: 12/08/16 HISTORY: The patient is met with today. He describes that he is no snow [place] effects from the start of the Celexa today. He did describe that the clonidine and the hydroxyzine had been ineffective for his anxiety. He did endorse some social anxiety and difficulty going to groups and tolerating group anxiety. He did ask for another medication in order to help him with his group anxiety. He otherwise described that he was interesting going as he felt as though he was getting little of the program. He further described that he was going to attempt to gain sobriety as an outpatient. He was told at great length that his alcoholism would be likely sniffing sorts of dangerous in the future in terms of impulsivity and overall damage to his body. He's had no disruptive instances over the rogers and does not appear to be scoring on any alcohol withdrawal scale. VITAL SIGNS: See below. NEW TEST RESULTS: None. CURRENT MEDICATIONS: See below. MENTAL STATUS EXAMINATION: General: Well-groomed Speech: Spontaneous and fluid Thought processes: Linear and logical Thought content: Some worry about groups Abstract reasoning, and computation: Intact Description of associations: Intact Description of abnormal or psychotic thoughts:Denies any suicidal or homicidal ideation. Denies any auditory or visual hallucinations. Does not appear to be responding to internal stimuli. Does not appear to be endorsing any bizarre or paranoid ideation.. Judgment: Fair Insight: Poor Orientation: Alert and orientated 3 Recent and remote memory: Intact Attention span and concentration: Good Fund of knowledge: Adequate Mood: "A little anxious" Affect: Mildly anxious and constricted DIAGNOSES: 1. Unspecified depressive disorder. 2. Unspecified anxiety disorder. 3. Alcohol use disorder, severe, in controlled setting. ASSESSMENT: A 28-year-old male with a long history of alcoholism and anger, who presents after a reported attempt to hang himself. He is out of no ligature baltazar and his attempt appears to be somewhat dubious. He does appear to be improving somewhat with the milieu. He is interesting going home and understands that treating his alcoholism is imperative to his success as an outpatient. MANAGEMENT PLAN: 1. Increase Celexa to 20 mg daily tomorrow 2. Discontinue clonidine and hydroxyzine, start Inderal 10 mg twice daily with a dose now for anxiety 3. Continue inpatient admission as the patient will need further time in order to plan a safe discharge. TIME SPENT: 20 minutes. Vital Signs Vital Signs Date Time Temp Pulse Resp B/P Pulse Ox O2 Delivery O2 Flow Rate FiO2 12/08/16 14:07 88 132/72 12/08/16 11:33 98.8 18 12/07/16 11:56 Room Air Current Medications Current Medications Acetaminophen (Tylenol Tab) 650 mg Q6HP PRN PO HEADACHE or DISCOMFORT; Start at 16:30; Stop 12/30/16 at 16:29 Bupropion HCl (Wellbutrin Xl) 150 mg DAILY PO Last administered on 12/07/16 09 :06; Start 12/01/16 at 09:00; Stop 12/07/16 at 16:07; Status DC Citalopram Hydrobromide (CeleXA) 10 mg DAILY PO Last administered on 12/08/16 09:04; Start 12/08/16 at 09:00; Stop 12/08/16 at 12:53; Status DC Citalopram Hydrobromide (CeleXA) 20 mg DAILY PO ; Start 12/09/16 at 09:00; Stop 12/09/16 at 09:00; Status DC Citalopram Hydrobromide (CeleXA) 20 mg DAILY PO ; Start 12/09/16 at 09:00; Stop 01/08/17 at 08:59 Clonidine HCl (Catapres) 0.05 mg TIDP PRN PO anxiety Last administered on 09:06; Start 12/04/16 at 10:45; Stop 01/03/17 at 10:44 Diphenhydramine HCl (Benadryl) 25 mg Q6HP PRN PO ANXIETY/AGITATION Last administered on 12/05/16 08:30; Start 11/30/16 at 16:30; Stop 12/30/16 at 16:29 Folic Acid (Folic Acid) 1 mg DAILY PO Last administered on 12/08/16 09:04; Start 12/01/16 at 09:00; Stop 12/31/16 at 08:59 Home Med (Med Rec Complete!) ASDIRECTED XX ; Start 11/30/16 at 12:30; Stop at 12:31; Status DC Lorazepam (Ativan) 2 mg ASDIRECTED PRN PO SEE PROTOCOL Last administered on 10:43; Start 11/30/16 at 16:30; Stop 12/13/16 at 16:29 Magnesium Hydroxide (Milk Of Magnesia) 30 ml DAILYPRN PRN PO CONSTIPATION; Start 11/30/16 at 16:30; Stop 12/30/16 at 16:29 Multivitamins (Theragram-M) 1 tab DAILY PO Last administered on 12/08/16 09:04 ; Start 12/01/16 at 09:00; Stop 12/31/16 at 08:59 Naltrexone HCl (Revia) 25 mg DAILY PO Last administered on 12/07/16 09:05; Start 12/05/16 at 09:00; Stop 12/07/16 at 16:07; Status DC Thiamine HCl (Thiamine HCl) 100 mg BID PO Last administered on 12/03/16 08:55 ; Start 12/01/16 at 09:00; Stop 12/03/16 at 09:01; Status DC Trazodone HCl (Desyrel) 50 mg QHSP PRN PO INSOMNIA Last administered on 23:07; Start 11/30/16 at 16:30; Stop 12/30/16 at 16:29 Allergies Coded Allergies: No Known Allergies (Unverified , 11/29/16) GME ATTESTATION My preceptor for this patient encounter was physically present in the building during the encounter and was fully available. As needed, all aspects of the patient interview, examination, medical decision making process, and medical care plan development were reviewed and approved by the preceptor. Preceptor is aware and concurs with the plan as stated in the body of this note and will attest to such by his/her cosignature. SARAH FERNANDEZ DO Dec 08, 2016 18:04
[2016-12-08] MEDS: PROPRANOLOL 10 MG TAB PO SCH (20:55)
[2016-12-08] MEDS: traZODone 50 MG TAB PO PRN (20:55)
[2016-12-09 06:11] VITALS: BP 110/67
[2016-12-09 08:35] VITALS: BP 116/60
[2016-12-09] MEDS: PROPRANOLOL 10 MG TAB PO SCH (08:35)
[2016-12-09] MEDS: MULTIVITAMINS/MINERALS THERAP 1 TAB PO SCH (08:35)
[2016-12-09] MEDS: FOLIC ACID 1 MG TAB PO SCH (08:35)
[2016-12-09] MEDS ORDERED: CitaloPRAM (CeleXA) 20 MG TAB PO SCH (09:00)
[2016-12-09] MEDS ORDERED: CitaloPRAM (CeleXA) 10 MG TABLET PO SCH (09:00)
[2016-12-09] MEDS ORDERED: PROP10TA56 PO (10:05)
[2016-12-09] MEDS ORDERED: CELE20TA PO (10:05)
--- NOTE | 2016-12-10 17:48 | DS.PDOC ---
[facility] Discharge Summary Discharge Summary DATE OF ADMISSION: Nov 30, 2016 at 13:58 DATE OF DISCHARGE: Dec 09, 2016 at 11:00 DISCHARGE DIAGNOSES: 1. Unspecified depressive disorder. 2. Unspecified anxiety disorder. 3. Alcohol use disorder, severe, in controlled setting. REASON FOR ADMISSION: The patient was admitted due to suicidal ideation and a reported hanging attempt. The patient described having difficulties with anxiety and depression which precipitated in the context of increasing alcohol use. CONSULTANTS INVOLVED: None TREATMENT AND PROGRESS ON THE UNIT : Legal status on admission: 9.39 Medication Management: The patient was originally started on Wellbutrin but subsequent to discontinuing as he felt ineffective. He is additionally tried on naltrexone for alcohol cravings which was subsequent only also discontinued as he found ineffective. Clonidine was tried as well for anxiety but was noted to be ineffective to. He was started then on Celexa 10 mg and titrated up to 20 mg as he had had a positive result in the past with Celexa. Additionally he was started on propranolol 10 mg twice daily which appeared to produce positive effect in his social anxiety. Psychotherapy: The patient only participated in a few groups on the [facility] Behavior: Generally reclusive and reserved. After the start of the propranolol he appeared to be more social and did attend groups. He had no episodes of agitation or outbursts that were disruptive. Discharge planning: The patient then requested discharge after he had been started on the Celexa. He appeared to have sufficient resolution of his symptoms and felt she was ready to return home. DISCHARGE ASSESSMENT: 31-year-old man with a long history of alcoholism with subsequent anger, anxiety and depression. His difficult this time to know whether his symptoms are caused by acute alcoholism, personality traits or major mental illness. MENTAL STATUS EXAMINATION ON DISCHARGE: General: Well dressed with good hygiene Speech: Spontaneous and fluid Thought processes: Linear and logical Thought content: Focused on discharge Abstract reasoning, and computation: Intact Description of associations: Intact Description of abnormal or psychotic thoughts:Denies any suicidal or homicidal ideation. Denies any auditory or visual hallucinations. Does not appear to be responding to internal stimuli. Does not appear to be endorsing any bizarre or paranoid ideation. Judgment: Fair Insight: Fair Orientation: Alert and orientated 3 Recent and remote memory: Intact Attention span and concentration: Intact Fund of knowledge: Adequate Mood: "Good" Affect: Euthymic with a full range PLAN/FOLLOWUP ARRANGEMENTS: The patient was referred to outpatient behavioral treatment at [facility]. He is additionally referred to Alcoholics Anonymous and given strong endorsement that he should attempt to get treatment for his alcoholism. The amount of time spent in the coordination of care for this patient was approximately 30 minutes. Medications Scheduled Citalopram Hydrobromide (Celexa) 20 Mg Tab #7 20 MG PO DAILY MOOD Propranolol HCl (Propranolol HCl) 10 Mg Tab #14 10 MG PO BID ANXIETY Allergies Coded Allergies: No Known Allergies (Unverified , 11/29/16) GME ATTESTATION My preceptor for this patient encounter was physically present in the building during the encounter and was fully available. As needed, all aspects of the patient interview, examination, medical decision making process, and medical care plan development were reviewed and approved by the preceptor. Preceptor is aware and concurs with the plan as stated in the body of this note and will attest to such by his/her cosignature. SARAH FERNANDEZ DO Dec 10, 2016 17:48
== END 2016-12-09 11:00 | disposition home or self-care (01) | DRG 754 ==
LOC: M ED 05:59 → M ED INP 11-30 13:58 → M PSY 11-30 14:47
PROVIDERS: ADMIT Psychiatry & Neurology Psychiatry; ATTEND Internal Medicine Addiction Medicine
DX: F32.9 Major depressive disorder, single episode, unspecified (principal); E87.0 Hyperosmolality and hypernatremia; F41.9 Anxiety disorder, unspecified; Z79.899 Other long term (current) drug therapy; F10.20 Alcohol dependence, uncomplicated

== ENCOUNTER → 2017-01-21 | Outpatient (CLI) | payer BC ==
[~2017-01-21] MED LIST: CELE20TA PO; HYDR-4274 PO; PROP10TA56 PO; anxiety medication
== END ==
LOC: M OUTALCOH 14:05
DX: Z13.9 Encounter for screening, unspecified (principal)

== ENCOUNTER 2017-02-01 07:57 | Outpatient (RCR) | payer BC | END 2017-02-17 | LOC: M OUTALCOH 07:57 | PROVIDERS: ATTEND Psychiatry & Neurology Psychiatry | DX: F10.20 Alcohol dependence, uncomplicated (principal) ==

== ENCOUNTER 2017-02-22 10:58 | Outpatient (RCR) | payer BC ==
[~2017-02-22 10:58] MED LIST changes: -HYDR-4274 PO; +HYDR50TA70 PO
== END 2017-03-19 | disposition home or self-care (01) ==
LOC: M OUTALCOH 10:58
PROVIDERS: ATTEND Psychiatry & Neurology Psychiatry
DX: F10.20 Alcohol dependence, uncomplicated (principal)

== ENCOUNTER 2018-09-22 11:45 | Emergency (ER) | payer BC, OTHER ==
[~2018-09-22] VITALS: Ht 182.9 cm; Wt 77.3 kg
[2018-09-22] MEDS ORDERED: IBUP-1022 PO (11:53)
[2018-09-22] MEDS ORDERED: ROBA500T PO (12:39)
[2018-09-22] MEDS ORDERED: NAPR-885 PO (12:39)
[2018-09-22 12:45] VITALS: BP 117/68
== END 2018-09-22 12:46 | disposition home or self-care (01) ==
LOC: M ED 11:45
DX: S39.012A Strain of muscle, fascia and tendon of lower back, initial encounter (principal); M54.31 Sciatica, right side; X50.9XXA Other and unspecified overexertion or strenuous movements or postures, initial encounter; Y92.9 Unspecified place or not applicable; Y93.9 Activity, unspecified; Y99.0 Civilian activity done for income or pay

== ENCOUNTER 2018-09-29 14:18 | Emergency (ER) | payer OTHER ==
[~2018-09-29] VITALS: Ht 182.9 cm; Wt 83.6 kg
[2018-09-29 14:18] VITALS: BP 136/73
[~2018-09-29 14:18] MED LIST changes: +IBUP-1022 PO; +NAPR-885 PO; +ROBA500T PO
[2018-09-29] MEDS ORDERED: MEDR4PAK PO (14:57)
== END 2018-09-29 15:11 | disposition home or self-care (01) ==
LOC: M ED 14:18
DX: M54.31 Sciatica, right side (principal); S39.012A Strain of muscle, fascia and tendon of lower back, initial encounter